=== PATIENT | male | born 1965 | race African-American/Black ===

== ENCOUNTER 2018-09-28 22:55 | Emergency (ER) | payer MEDICAID, OTHER | END 2018-09-28 23:10 | disposition left against medical advice (07) | LOC: ER 22:57 | DX: Z53.21 Procedure and treatment not carried out due to patient leaving prior to being seen by health care provider (principal) ==

== ENCOUNTER 2018-09-29 06:40 | Emergency (ER) | payer MEDICAID ==
[~2018-09-29] VITALS: Ht 190.5 cm; Wt 149.7 kg
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
--- NOTE | 2018-09-29 07:19 | NUR ---
REPORT GIVEN TO AM EVELIO MAX.
[2018-09-29 07:25] VITALS: BP 160/95
--- NOTE | 2018-09-29 07:42 | NUR ---
Patient discharged to home in stable condition. Written and verbal after care instructions given. Patient verbalizes understanding of instruction. Pt ambulatory with a steady gait. Tap card and food given to pt. pt has appropriate clothing. pt signed waiver.
== END 2018-09-29 07:46 | disposition home or self-care (01) ==
LOC: ER 06:41
DX: F10.229 Alcohol dependence with intoxication, unspecified (principal); K40.90 Unilateral inguinal hernia, without obstruction or gangrene, not specified as recurrent; F19.10 Other psychoactive substance abuse, uncomplicated; I11.0 Hypertensive heart disease with heart failure; I50.9 Heart failure, unspecified; H54.40 Blindness, one eye, unspecified eye; F20.9 Schizophrenia, unspecified; F32.9 Major depressive disorder, single episode, unspecified; Y90.9 Presence of alcohol in blood, level not specified; Z94.7 Corneal transplant status; Z59.0 Homelessness

== ENCOUNTER 2018-10-06 02:03 | Emergency (ER) | payer MEDICAID ==
[~2018-10-06] VITALS: Ht 182.9 cm; Wt 136.1 kg
[2018-10-06 02:07] VITALS: BP 152/84
--- NOTE | 2018-10-06 07:01 | NUR ---
Patient is ambulatory with steady gait. Refuses offer of detention placement. Patient given list of available shelters in surrounding area.
--- NOTE | 2018-10-06 07:25 | NUR ---
PT OK TO DISCHARGE PER DR LEACH. PT YELLING AND CURSING AT STAFF. PT ESCORTED OUT OF ER BY SECURITY.
== END 2018-10-06 07:27 | disposition home or self-care (01) ==
LOC: ER 02:07
DX: R06.02 Shortness of breath (principal); H54.7 Unspecified visual loss; I11.0 Hypertensive heart disease with heart failure; I50.9 Heart failure, unspecified; F20.9 Schizophrenia, unspecified; F32.9 Major depressive disorder, single episode, unspecified; F10.10 Alcohol abuse, uncomplicated; Y90.9 Presence of alcohol in blood, level not specified; Z59.0 Homelessness; Z94.7 Corneal transplant status

== ENCOUNTER 2018-10-08 06:01 | Emergency (ER) | payer MEDICAID ==
[~2018-10-08] VITALS: Ht 182.9 cm; Wt 136.1 kg
[2018-10-08 06:17] VITALS: BP 142/84
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
--- NOTE | 2018-10-08 06:45 | NUR ---
PT IS ASKING TO TAKE A SHOWER AND WASH HIME SELF. PT WAS PROVIDED W/ TOWELS , WASH CLOTH AND BODY WASH. PT REFUSED HELP. REFUSED GOING TO THE BATHROOM AND STARTED WASHING HIM SELF USING THE SUPPLIES ON THE SINK. PT WAS GIVEN PRIVACY MUCH POSSIBLE USING A DIVIDER.
--- NOTE | 2018-10-08 07:50 | NUR ---
CALLED [employer] TO SEND OFFICERS FOR PT TO FILE POLICE REPORT.
--- NOTE | 2018-10-08 08:37 | NUR ---
PD AT BEDSIDE TALKING TO PT.
--- NOTE | 2018-10-08 09:40 | NUR ---
Patient given written and verbal discharge instructions. Patient verbalizes understanding of instructions. Patient is ambulatory with steady gait. Refuses offer of long term placement. Patient given list of available shelters in surrounding area.
== END 2018-10-08 09:43 | disposition home or self-care (01) ==
LOC: ER 06:01
DX: F19.10 Other psychoactive substance abuse, uncomplicated (principal); R00.0 Tachycardia, unspecified; I11.0 Hypertensive heart disease with heart failure; I50.9 Heart failure, unspecified; H54.40 Blindness, one eye, unspecified eye; F32.9 Major depressive disorder, single episode, unspecified; F20.9 Schizophrenia, unspecified; F10.10 Alcohol abuse, uncomplicated; Y90.9 Presence of alcohol in blood, level not specified; Z59.0 Homelessness; Z94.7 Corneal transplant status; Z77.098 Contact with and (suspected) exposure to other hazardous, chiefly nonmedicinal, chemicals; Y08.89XA Assault by other specified means, initial encounter; Y93.89 Activity, other specified; Y92.89 Other specified places as the place of occurrence of the external cause; Y99.8 Other external cause status

== ENCOUNTER 2022-10-16 10:51 | Emergency (ER) | payer MEDICAID, OTHER ==
[~2022-10-16] VITALS: Ht 185.4 cm; Wt 83.9 kg
[2022-10-16 12:32] LABS: BASOPHILS % (AUTO) 0.5 % (0.0-2.0); EOSINOPHILS % (AUTO) 0.9 % (0.0-6.0); HEMATOCRIT 44 % (39-51); HEMOGLOBIN 14.4 g/dL (13.5-17.5); LYMPHOCYTES % (AUTO) 20.5 % (20.0-44.0); MEAN CORPUSCULAR HEMOGLOBIN 29 PG (26.0-33.0); MEAN CORPUSCULAR HGB CONC 33 g/dl (31.0-36.0); MEAN CORPUSCULAR VOLUME 87 fL (80-96); MONOCYTES # (AUTO) 0.6 K/uL (0.1-1.30); MONOCYTES % (AUTO) 12.6 % (2.0-12.0); NEUTROPHILS # (AUTO) 3.4 K/uL (1.8-8.9); NEUTROPHILS % (AUTO) 65.5 % (43.0-81.0); PLATELET COUNT (AUTO) 172 K/uL (150-450); RED BLOOD CELL COUNT(AUTO) 5.05 MIL/uL (4.5-6.0); RED CELL DISTRIBUTION WIDTH 17.7 % (11.5-15.0); WHITE BLOOD COUNT (AUTO) 5.1 K/uL (4.3-11.0)
[2022-10-16 13:27] LABS: CALCIUM, SERUM 8.9 mg/dL (8.5-10.1); CARBON DIOXIDE 24 mmol/L (21-32); CHLORIDE 105 mmol/L (98-107); CREATININE 1.7 mg/dL (0.6-1.3); GLUCOSE 124 mg/dL (74-106); POTASSIUM 3.5 mmol/L (3.5-5.1); SODIUM SERUM 139 mmol/L (136-145); UREA NITROGEN, BLOOD 19 mg/dL (7-18)
[2022-10-16 13:32] LABS: ALANINE AMINOTRANSFERASE 22 U/L (12-78); ALBUMIN 3.6 g/dL (3.4-5.0); ALKALINE PHOSPHATASE 101 U/L (46-116); ASPARTATE AMINOTRANSFERASE 26 U/L (15-37); BILIRUBIN,DIRECT 0.1 mg/dL (0.0-0.2); BILIRUBIN,TOTAL 0.5 mg/dL (0.2-1.0); TOTAL PROTEIN, SERUM 7.2 g/dL (6.4-8.2)
[2022-10-16 13:33] LABS: ACETAMINOPHEN 0 ug/ml (10-30); ALCOHOL, BLOOD < 3 mg/dL (0-10); SALICYLATE < 2.3 mg/dL (2.8-20.0)
[2022-10-16 14:20] LABS: APPEARANCE,URINE CLEAR (CLEAR); BILIRUBIN,URINE NEGATIVE (NEGATIVE); BLOOD, URINE NEGATIVE Ery/uL (NEGATIVE); COLOR,URINE YELLOW (YELLOW); KETONES,URINE NEGATIVE (NEGATIVE); LEUKOCYTE ESTERASE ,URINE NEGATIVE (NEGATIVE); NITRITE, URINE NEGATIVE (NEGATIVE); PROTEIN,URINE TRACE mg/dl (NEGATIVE); UGLUCOSE NEGATIVE (NEGATIVE)
[2022-10-16 14:47] LABS: AMPHETAMINE, URINE NEGATIVE (NEGATIVE); BARBITURATE, URINE NEGATIVE (NEGATIVE); BENZODIAZEPINE, URINE NEGATIVE (NEGATIVE); COCCAINE, URINE NEGATIVE (NEGATIVE); OPIATE, URINE NEGATIVE (NEGATIVE); PHENCYCLIDINE SCREEN,URINE NEGATIVE (NEGATIVE)
[2022-10-16 14:56] LABS: CANNABINOID, URINE POSITIVE (NEGATIVE)
[2022-10-16 15:53] LABS: ADD URINE CULTURE NO; BACTERIA,URINE Rare /HPF (None Seen); MUCUS,URINE Few /LPF (None Seen); RBC,URINE 0-2 /HPF (0-2); SPERM,URINE Few /HPF (None Seen); SQUAMOUS EPITHELIAL CELL,UR None Seen /HPF (None Seen); WBC,URINE 0-2 /HPF (0-3)
[2022-10-16 18:19] VITALS: BP 141/78; TEMP 98; O2SAT 97
== END 2022-10-16 18:20 ==
LOC: ER 11:00
DX: R45.851 Suicidal ideations (principal); R44.0 Auditory hallucinations; I11.0 Hypertensive heart disease with heart failure; I50.9 Heart failure, unspecified; F32.A Depression, unspecified; Z20.822 Contact with and (suspected) exposure to COVID-19; Z98.890 Other specified postprocedural states; Z59.00 Homelessness unspecified
CPT/HCPCS: 99285; 85025; 80048; 80076; 81001; 36415; 87426; 80143; 80320; 80307; A6403; C9803; G0480